=== PATIENT | male | born 1945 | race Caucasian/White ===

== ENCOUNTER 2019-09-01 17:14 | Inpatient (IN) | payer OTHER ==
[~2019-09-01] VITALS: Ht 185.4 cm; Wt 122.5 kg
[2019-09-01 17:32] VITALS: BP_SYST 104
[2019-09-01] MEDS ORDERED: cefTRIAXone 1 GM in D5W 50 ML IV ONE (20:00)
[2019-09-01] MEDS ORDERED: MIDAZOLAM HCL 5 MG/5 ML VIAL IVP ONE (20:00)
[2019-09-01] MEDS ORDERED: PROPOFOL 200MG/ 20ML VIAL (DIPRIVAN) IV ONE (20:00)
[2019-09-01] MEDS ORDERED: VANCOMYCIN HCL 1,000 MG in NS 250 ML IV ONE (20:00)
[2019-09-01] MEDS ORDERED: LR 1,000 ML IV.SOLN IV ONE (20:00)
[2019-09-01] MEDS ORDERED: LIDOCAINE 1% 10 MG/ML, 20 ML MDV INJ ONE (20:00)
[2019-09-01] MEDS ORDERED: METF1000 PO (20:14)
[2019-09-01] MEDS ORDERED: BACTROBAN TP (20:14)
[2019-09-01] MEDS ORDERED: METO25TA3 PO (20:14)
[2019-09-01] MEDS ORDERED: GLIP5TAB13 PO (20:14)
[2019-09-01] MEDS ORDERED: APIX5TAB PO (20:14)
[2019-09-01] MEDS ORDERED: TADA5TAB2 PO (20:14)
[2019-09-01] MEDS ORDERED: LOSA50TA3 PO (20:14)
[2019-09-01] MEDS ORDERED: ATOR40TA68 PO (20:14)
[2019-09-01] MEDS ORDERED: MORPHINE 2 MG/ML INJ. SYRINGE IVP ONE (20:15)
[2019-09-01] MEDS ORDERED: ONDANSETRON HCL 4 MG/2 ML VIAL IVP ONE (20:15)
[2019-09-01 20:32] LABS: BASOPHILS # (AUTO) 0.1 K/uL (0.0-0.2); EOSINOPHILS # (AUTO) 0.1 K/uL (0.0-0.4); HEMATOCRIT 35.7 % (36-54); LYMPHOCYTES # (AUTO) 1.2 K/uL (1.0-5.5); LYMPHOCYTES % (AUTO) 9.7 % (20.5-51.5); MEAN CORPUSCULAR HEMOGLOBIN 30 pg (27-31); MEAN CORPUSCULAR HGB CONC 34 % (32-36); MEAN CORPUSCULAR VOLUME 89 fL (79.0-98.0); MONOCYTES % (AUTO) 8.7 % (1.7-9.3); NEUTROPHILS # (AUTO) 9.7 K/uL (1.8-7.7); NEUTROPHILS % (AUTO) 80.1 % (40.0-70.0); PLATELET COUNT (AUTO) 432 K/uL (130-430); RED BLOOD CELL COUNT(AUTO) 4.03 MIL/uL (4.2-6.2); RED CELL DISTRIBUTION WIDTH 14.3 % (9.0-15.0); WHITE BLOOD COUNT (AUTO) 12.1 K/uL (4.8-10.8)
[2019-09-01] MEDS ORDERED: cefTRIAXone 1 GM VIAL ONE (20:34)
[2019-09-01] MEDS ORDERED: VANCOMYCIN HCL 1000 MG/VIAL IV ONE (20:34)
[2019-09-01 20:37] LABS: BASOPHILS % (AUTO) 0.4 % (0.0-2.0); EOSINOPHILS % (AUTO) 1.1 % (0.0-4.0)
[2019-09-01 20:43] LABS: ANION GAP 5 (5-15); CALCIUM 9.3 mg/dL (8.4-11.0); CHLORIDE 98 mmol/L (98-107); GLUCOSE 177 mg/dL (70-99); POTASSIUM 4.7 mmol/L (3.5-5.1); SODIUM SERUM 130 mmol/L (136-145); UREA NITROGEN, BLOOD 16 mg/dL (8-21)
[2019-09-01 20:48] LABS: ALANINE AMINOTRANSFERASE 23 U/L (12-78); ALBUMIN 2.8 g/dL (3.4-4.8); ASPARTATE AMINOTRANSFERASE 21 U/L (10-37); TOTAL BILIRUBIN 0.7 mg/dL (0.0-1.0)
[2019-09-01 20:58] LABS: INR 1.1 (0.80-1.20); PROTHROMBIN TIME 11.1 SECS (9.5-12.5)
[2019-09-01] MEDS ORDERED: NS 500 ML IV ONE (21:15)
[2019-09-01] MEDS ORDERED: DILTIAZEM HCL 25 MG/5 ML VIAL IVP ONE ×2 (21:30→22:15)
[2019-09-01 23:55] VITALS: BP_SYST 112
[2019-09-02] VITALS (19 sets, daily range): BP systolic 87–134
[2019-09-02] MEDS ORDERED: DILTIAZEM HCL 25 MG/5 ML VIAL IVP PRN ×2 (01:30→01:45)
[2019-09-02] MEDS ORDERED: MORPHINE 2 MG/ML INJ. SYRINGE IVP ONE (01:30)
[2019-09-02] MEDS ORDERED: DILTIAZEM HCL 125 MG in D5W 100 ML IV SCH (03:45)
[2019-09-02] MEDS ORDERED: PIPERACILLIN/TAZOBACTAM 3.375 GM/VIAL (ZOSYN) IV ONE (04:07)
[2019-09-02] MEDS ORDERED: DILTIAZEM HCL 125 MG/25 ML VIAL IV ONE (04:24)
[2019-09-02] MEDS: PIPERACILLIN/TAZO 3.375 GM in NS 50 ML IV SCH ×3 (06:00→22:41)
[2019-09-02] MEDS ORDERED: MORPHINE 2 MG/ML INJ. SYRINGE IVP PRN (06:15)
[2019-09-02] MEDS ORDERED: NACL 0.9% 1,000 ML IV ONE (09:00)
[2019-09-02] MEDS ORDERED: METOPROLOL SUCCINATE 25 MG TAB.SR.24H (TOPROL XL) PO SCH (09:00)
[2019-09-02] MEDS: metFORMIN HCL 500 MG TABLET PO SCH ×2 (09:42→17:39)
[2019-09-02] MEDS: LOSARTAN POTASSIUM 50 MG TABLET (COZAAR) PO SCH (09:43)
[2019-09-02] MEDS: APIXABAN 2.5 MG TABLET PO SCH ×2 (09:43→22:43)
[2019-09-02] MEDS: METOPROLOL SUCCINATE 50 MG TAB.SR.24H (TOPROL XL) PO SCH (09:44)
[2019-09-02] MEDS: DILTIAZEM HCL 30 MG TABLET PO SCH ×3 (09:44→22:42)
[2019-09-02] MEDS: NACL 0.9% 1,000 ML IV SCH (09:52)
[2019-09-02] MEDS: VANCOMYCIN HCL 1,250 MG in NS 250 ML IV SCH ×2 (12:37→22:41)
[2019-09-02] MEDS: AMIODARONE HCL 200 MG TABLET PO SCH ×2 (13:06→22:42)
[2019-09-02] MEDS: MORPHINE 4 MG/ML INJ. SYRINGE IVP PRN ×3 (13:10→22:01)
[2019-09-02] MEDS: CLINDAMYCIN 600 MG in D5W 50 ML IV SCH ×2 (14:53→22:41)
[2019-09-02] MEDS ORDERED: AMIODARONE HCL 200 MG TABLET PO ONE (17:15)
[2019-09-02] MEDS ORDERED: NS 250 ML IV ONE (17:15)
[2019-09-02] MEDS ORDERED: POLYMYXIN 500,000/BACIT.10,000 UNITS in NS IRR 1 L IR ONE (20:31)
[2019-09-02] MEDS ORDERED: fentaNYL CITRATE/PF 100 MCG/2 ML AMP IVP PRN (21:00)
[2019-09-02] MEDS: fentaNYL CITRATE/PF 100 MCG/2 ML AMP IVP PRN ×2 (21:02→21:11)
[2019-09-02] MEDS: fentaNYL CITRATE/PF 100 MCG/2 ML AMP IVP ONE ×2 (21:02→21:11)
[2019-09-02] MEDS ORDERED: fentaNYL CITRATE/PF 100 MCG/2 ML AMP ONE (21:13)
[2019-09-02] MEDS: ATORVASTATIN 20 MG TABLET PO SCH (22:42)
[2019-09-03] VITALS (13 sets, daily range): BP systolic 102–128
[2019-09-03 05:31] LABS: BASOPHILS % (AUTO) 0.5 % (0.0-2.0); EOSINOPHILS # (AUTO) 0.1 K/uL (0.0-0.4); EOSINOPHILS % (AUTO) 0.7 % (0.0-4.0); HEMATOCRIT 33.4 % (36-54); HEMOGLOBIN 11.2 g/dL (14.0-18.0); LYMPHOCYTES # (AUTO) 0.8 K/uL (1.0-5.5); LYMPHOCYTES % (AUTO) 7.8 % (20.5-51.5); MEAN CORPUSCULAR HEMOGLOBIN 30 pg (27-31); MEAN CORPUSCULAR HGB CONC 34 % (32-36); MEAN CORPUSCULAR VOLUME 89 fL (79.0-98.0); MONOCYTES % (AUTO) 10.2 % (1.7-9.3); NEUTROPHILS # (AUTO) 8.3 K/uL (1.8-7.7); NEUTROPHILS % (AUTO) 80.8 % (40.0-70.0); PLATELET COUNT (AUTO) 416 K/uL (130-430); RED BLOOD CELL COUNT(AUTO) 3.75 MIL/uL (4.2-6.2); RED CELL DISTRIBUTION WIDTH 14.1 % (9.0-15.0); WHITE BLOOD COUNT (AUTO) 10.3 K/uL (4.8-10.8)
[2019-09-03 05:51] LABS: INR 1.2 (0.80-1.20); PROTHROMBIN TIME 11.7 SECS (9.5-12.5)
[2019-09-03 05:57] LABS: CHOLESTEROL 83 mg/dL (<200); HDL CHOLESTEROL 32 mg/dL (>45); LDL CHOLESTEROL 40 mg/dL (<100); TRIGLYCERIDES 73 mg/dL (30-150)
[2019-09-03] MEDS: AMIODARONE HCL 200 MG TABLET PO SCH ×3 (06:12→22:00)
[2019-09-03] MEDS: CLINDAMYCIN 600 MG in D5W 50 ML IV SCH ×3 (06:13→22:00)
[2019-09-03] MEDS: PIPERACILLIN/TAZO 3.375 GM in NS 50 ML IV SCH ×3 (06:15→22:00)
[2019-09-03] MEDS: NACL 0.9% 1,000 ML IV SCH ×2 (06:16→14:30)
[2019-09-03 06:25] LABS: ALANINE AMINOTRANSFERASE 17 U/L (12-78); ALBUMIN 2.3 g/dL (3.4-4.8); ANION GAP 6 (5-15); ASPARTATE AMINOTRANSFERASE 10 U/L (10-37); CALCIUM 8.3 mg/dL (8.4-11.0); CHLORIDE 100 mmol/L (98-107); CREATININE 1.19 mg/dL (0.55-1.30); GLUCOSE 194 mg/dL (70-99); POTASSIUM 4.5 mmol/L (3.5-5.1); SODIUM SERUM 132 mmol/L (136-145); THYROID STIMULATING HORMONE 0.42 uIu/mL (0.36-3.74); TOTAL BILIRUBIN 0.5 mg/dL (0.0-1.0); UREA NITROGEN, BLOOD 15 mg/dL (8-21)
[2019-09-03] MEDS: METOPROLOL SUCCINATE 50 MG TAB.SR.24H (TOPROL XL) PO SCH (09:05)
[2019-09-03] MEDS: DILTIAZEM HCL 30 MG TABLET PO SCH ×3 (09:06→21:00)
[2019-09-03] MEDS: metFORMIN HCL 500 MG TABLET PO SCH ×2 (09:06→17:40)
[2019-09-03] MEDS: LOSARTAN POTASSIUM 50 MG TABLET (COZAAR) PO SCH (09:07)
[2019-09-03] MEDS: APIXABAN 2.5 MG TABLET PO SCH ×2 (09:08→21:00)
[2019-09-03] MEDS ORDERED: DEXTROSE 50% JECT 50 ML DISP.SYRIN IVP PRN (10:00)
[2019-09-03] MEDS: MORPHINE 4 MG/ML INJ. SYRINGE IVP PRN ×2 (10:42→22:15)
[2019-09-03] MEDS: VANCOMYCIN HCL 1,250 MG in NS 250 ML IV SCH (11:37)
[2019-09-03] MEDS: INSULIN REGULAR, HUMAN 100 UNITS/ML, 10 ML VIAL (humuLIN R) SUBCUT PRN ×2 (11:46→17:43)
[2019-09-03] MEDS: ATORVASTATIN 20 MG TABLET PO SCH (21:00)
[2019-09-04] VITALS (7 sets, daily range): BP systolic 120–157
[2019-09-04] MEDS: NACL 0.9% 1,000 ML IV SCH ×3 (00:30→20:30)
[2019-09-04] MEDS: MORPHINE 4 MG/ML INJ. SYRINGE IVP PRN ×4 (03:52→22:05)
[2019-09-04] MEDS: CLINDAMYCIN 600 MG in D5W 50 ML IV SCH ×3 (06:51→22:13)
[2019-09-04] MEDS: AMIODARONE HCL 200 MG TABLET PO SCH ×3 (06:52→22:12)
[2019-09-04] MEDS: PIPERACILLIN/TAZO 3.375 GM in NS 50 ML IV SCH ×3 (06:52→22:14)
[2019-09-04] MEDS: metFORMIN HCL 500 MG TABLET PO SCH ×2 (09:00→16:49)
[2019-09-04] MEDS: METOPROLOL SUCCINATE 50 MG TAB.SR.24H (TOPROL XL) PO SCH ×2 (09:01→22:12)
[2019-09-04] MEDS: DILTIAZEM HCL 30 MG TABLET PO SCH ×3 (09:01→22:11)
[2019-09-04] MEDS: LOSARTAN POTASSIUM 50 MG TABLET (COZAAR) PO SCH (09:01)
[2019-09-04] MEDS: APIXABAN 2.5 MG TABLET PO SCH ×2 (09:04→22:15)
[2019-09-04] MEDS: INSULIN REGULAR, HUMAN 100 UNITS/ML, 10 ML VIAL (humuLIN R) SUBCUT PRN ×2 (11:49→16:49)
[2019-09-04] MEDS: ATORVASTATIN 20 MG TABLET PO SCH (22:11)
[2019-09-05] MEDS: PIPERACILLIN/TAZO 3.375 GM in NS 50 ML IV SCH ×3 (06:08→21:47)
[2019-09-05] MEDS: CLINDAMYCIN 600 MG in D5W 50 ML IV SCH ×3 (06:08→21:47)
[2019-09-05] MEDS: AMIODARONE HCL 200 MG TABLET PO SCH ×3 (06:23→21:48)
[2019-09-05] MEDS: INSULIN REGULAR, HUMAN 100 UNITS/ML, 10 ML VIAL (humuLIN R) SUBCUT PRN ×3 (06:30→17:07)
[2019-09-05 08:05] VITALS: BP_SYST 121
[2019-09-05] MEDS: NACL 0.9% 1,000 ML IV SCH ×3 (09:02→21:41)
[2019-09-05] MEDS: METOPROLOL SUCCINATE 50 MG TAB.SR.24H (TOPROL XL) PO SCH ×2 (09:03→21:48)
[2019-09-05] MEDS: LOSARTAN POTASSIUM 50 MG TABLET (COZAAR) PO SCH (09:04)
[2019-09-05] MEDS: DILTIAZEM HCL 30 MG TABLET PO SCH (09:04)
[2019-09-05] MEDS: metFORMIN HCL 500 MG TABLET PO SCH ×2 (09:04→17:03)
[2019-09-05] MEDS: APIXABAN 2.5 MG TABLET PO SCH ×2 (09:05→21:51)
[2019-09-05] MEDS: MORPHINE 4 MG/ML INJ. SYRINGE IVP PRN ×3 (09:59→21:42)
[2019-09-05 12:40] VITALS: BP_SYST 115
[2019-09-05 16:40] VITALS: BP_SYST 126
[2019-09-05 20:37] VITALS: BP_SYST 136
[2019-09-05] MEDS: ATORVASTATIN 20 MG TABLET PO SCH (21:49)
[2019-09-06] MEDS: INSULIN REGULAR, HUMAN 100 UNITS/ML, 10 ML VIAL (humuLIN R) SUBCUT PRN ×3 (00:13→12:54)
[2019-09-06 02:35] VITALS: BP_SYST 104
[2019-09-06] MEDS: CLINDAMYCIN 600 MG in D5W 50 ML IV SCH ×2 (06:50→12:49)
[2019-09-06] MEDS: PIPERACILLIN/TAZO 3.375 GM in NS 50 ML IV SCH ×2 (06:50→12:48)
[2019-09-06] MEDS: AMIODARONE HCL 200 MG TABLET PO SCH (06:52)
[2019-09-06 06:55] LABS: BASOPHILS % (AUTO) 0.4 % (0.0-2.0); EOSINOPHILS # (AUTO) 0.2 K/uL (0.0-0.4); EOSINOPHILS % (AUTO) 1.7 % (0.0-4.0); HEMATOCRIT 33.1 % (36-54); HEMOGLOBIN 11.4 g/dL (14.0-18.0); LYMPHOCYTES % (AUTO) 10.5 % (20.5-51.5); MEAN CORPUSCULAR HEMOGLOBIN 30 pg (27-31); MEAN CORPUSCULAR HGB CONC 35 % (32-36); MEAN CORPUSCULAR VOLUME 87 fL (79.0-98.0); MONOCYTES # (AUTO) 0.8 K/uL (0.0-1.0); MONOCYTES % (AUTO) 8.5 % (1.7-9.3); NEUTROPHILS # (AUTO) 7.2 K/uL (1.8-7.7); NEUTROPHILS % (AUTO) 78.9 % (40.0-70.0); PLATELET COUNT (AUTO) 456 K/uL (130-430); RED BLOOD CELL COUNT(AUTO) 3.79 MIL/uL (4.2-6.2); RED CELL DISTRIBUTION WIDTH 13.9 % (9.0-15.0); WHITE BLOOD COUNT (AUTO) 9.1 K/uL (4.8-10.8)
[2019-09-06 08:00] VITALS: BP_SYST 129
[2019-09-06] MEDS: metFORMIN HCL 500 MG TABLET PO SCH ×2 (09:54→18:05)
[2019-09-06] MEDS: METOPROLOL SUCCINATE 50 MG TAB.SR.24H (TOPROL XL) PO SCH (09:55)
[2019-09-06] MEDS: LOSARTAN POTASSIUM 50 MG TABLET (COZAAR) PO SCH (09:55)
[2019-09-06] MEDS: APIXABAN 2.5 MG TABLET PO SCH (09:57)
[2019-09-06] MEDS: MORPHINE 4 MG/ML INJ. SYRINGE IVP PRN (09:59)
[2019-09-06 12:00] VITALS: BP_SYST 136
[2019-09-06] MEDS: NACL 0.9% 1,000 ML IV SCH (12:49)
[2019-09-06] MEDS ORDERED: AMPI1VIA IJ (13:13)
[2019-09-06 16:00] VITALS: BP_SYST 136
[2019-09-06 17:08] VITALS: BP_SYST 136
[2019-09-06] MEDS ORDERED: HYDROcodone/ACETAMIN 5-325 MG TAB (NORCO/ VICODIN) PO PRN ×2 (18:00)
[2019-09-06] MEDS ORDERED: HYDROcodone/ACETAMIN 10-325 MG TAB PO PRN (18:00)
[2019-09-06] MEDS ORDERED: HYDROcodone/ACETAMIN 10-325 MG TAB ONE (19:08)
[2019-09-06] MEDS ORDERED: METOPROLOL SUCCINATE 50 MG TAB.SR.24H (TOPROL XL) PO SCH (21:00)
[2019-09-06] MEDS ORDERED: AMIODARONE HCL 200 MG TABLET PO SCH (21:00)
== END 2019-09-06 18:30 | DRG 853 ==
LOC: SED 17:14 → STU 22:12 → SIC 09-02 04:22 → STU 09-03 06:45
PROVIDERS: ADMIT Internal Medicine Hospice and Palliative Medicine; ATTEND Internal Medicine Hospice and Palliative Medicine
PROC: 02HV33Z Insertion of Infusion Device into Superior Vena Cava, Percutaneous Approach (ICD-10-PCS; principal; 2019-09-01)
PROC: 0JBQ0ZZ Excision of Right Foot Subcutaneous Tissue and Fascia, Open Approach (ICD-10-PCS; 2019-09-02)
DX: A41.9 Sepsis, unspecified organism (principal); M72.6 Necrotizing fasciitis; J96.00 Acute respiratory failure, unspecified whether with hypoxia or hypercapnia; L03.115 Cellulitis of right lower limb; L02.415 Cutaneous abscess of right lower limb; L97.319 Non-pressure chronic ulcer of right ankle with unspecified severity; M86.8X7 Other osteomyelitis, ankle and foot; I48.91 Unspecified atrial fibrillation; E11.622 Type 2 diabetes mellitus with other skin ulcer; E66.01 Morbid (severe) obesity due to excess calories; I10 Essential (primary) hypertension; E78.5 Hyperlipidemia, unspecified; N40.0 Benign prostatic hyperplasia without lower urinary tract symptoms; Z96.649 Presence of unspecified artificial hip joint; S90.911A Unspecified superficial injury of right ankle, initial encounter; X58.XXXA Exposure to other specified factors, initial encounter; E11.69 Type 2 diabetes mellitus with other specified complication; Z86.12 Personal history of poliomyelitis; Z90.49 Acquired absence of other specified parts of digestive tract; Z68.35 Body mass index [BMI] 35.0-35.9, adult; Y93.89 Activity, other specified; Y92.89 Other specified places as the place of occurrence of the external cause; Y99.8 Other external cause status; Z88.2 Allergy status to sulfonamides; Z88.8 Allergy status to other drugs, medicaments and biological substances; Z79.899 Other long term (current) drug therapy
CPT/HCPCS: 36415; 71045; 73700-TC; 73720; 80053; 80061; 80202-TC; 82962; 83605; 83880; 84443-TC; 85025; 85610-TC; 85651-TC; 85730-TC; 87040-TC; 87070; 87070-TC; 87075-TC; 87081; 88304; 93005; 93306; 93970; 94010; 94760; 96365; 96366; 96367; 96375; 96376; 97116-GP; 97530-GP; 99291; C1751; G0378; J0696; J1815; J2001; J2250; J2270; J2405; J2543; J2704; J3010; J3370; J3490; J7030; J7050; J7060; J7120